=== PATIENT | male | born 1955 | race Caucasian/White ===

== ENCOUNTER 2020-02-11 08:19 | Day surgery (SDC) | payer MEDICAID, SELFPAY ==
[2020-02-05 15:30] VITALS: BMI 33.7
[2020-02-11 08:28] VITALS: BP 142/90; PULSE 78; RESP 16; TEMP 36.4; O2SAT 96
[2020-02-11 08:44] LABS: Glucose, Whole Blood 159 mg/dL (60-115)
--- NOTE | 2020-02-11 08:47 | MHC.SHP ---
Pre-Procedural Eval Section B Chief Complaint: Screening Details of Present Illness: screening Relevant Family History (Specify if Yes): No Relevant Social History: None Present Medications: see Short Stay Collaborative assessment Medical History: No relevant PMH History of Previous Operations: No relevant previous surgery Allergies: Allergies Allergy/AdvReac Type Severity Reaction Status Date / Time Penicillins Allergy Unknown Verified 02/05/20 15:18 Review of Systems Sugical H&P ROS: Negative: Constitution, Cardiovascular, Respiratory, Neurological, Psychiatric, Hem-Onc, Allergic/Immunologic, Gastrointestinal, Genitourinary, Musculoskeletal, Integumentary, Endocrine and Eyes/Ears/Nose/Throat Exam Surgical H&P Exam: Normal: HEENT, Normal: Heart, Normal: Lungs, Normal: Extremities, Normal: Abdomen, Normal: Skin and Normal: Neurological Plan Diagnosis/Plan: Unchanged Patient has been examined and remains a candidate for the planned procedure
--- NOTE | 2020-02-11 09:01 | HO.ANESPROP2 ---
[facility] Past Medical History Medical History (Updated 02/11/20 @ 09:02 by Xochilt Ojeda) Arthritis Chronic kidney disease Diabetes mellitus, type II Fatty liver High cholesterol Hypertension Increased BMI Family History Family history of problems with anesthesia: No Surgical History Surgical History Hx of colonoscopy History of Problems with Anesthesia: No Social History Social History Are you a primary healthcare network consultant to a significant other at home: No Do you presently have visiting nurse or other home services: No Smoking Status: Never smoker Use of substances other than those prescribed or required for medical reasons: No Have you been hit, kicked, punched, or otherwise hurt by someone within the past year? If so, by whom?: No Advance Directives: No Advance Directives Information Provided: No Advance Directives on File: No Recently lost weight without trying: No Meds Allergies Allergy/AdvReac Type Severity Reaction Status Date / Time Penicillins Allergy Unknown Verified 02/05/20 15:18 Home Medications Medication Instructions Recorded Confirmed Type acetaminophen [Tylenol] 650 mg PO Q6H PRN 02/05/20 02/05/20 History amlodipine mg PO DAILY 02/05/20 History cholecalciferol (vitamin D3) 25 mcg PO DAILY 02/05/20 02/05/20 History [Vitamin D3] empagliflozin [Jardiance] mg PO DAILY 02/05/20 History gemfibrozil 600 mg PO BID 02/05/20 02/05/20 History hydrochlorothiazide 25 mg PO DAILY 02/05/20 02/05/20 History lisinopril 40 mg PO DAILY 02/05/20 02/05/20 History simvastatin 10 mg PO DAILY 02/05/20 02/05/20 History Exam Exam Date and Time: February 11, 2020900 Height,Weight and Vital Signs: Height 5 ft 8.5 in Weight 102.058 kg Last Vital Signs Temp 97.5 F 02/11/20 08:28 Pulse 78 02/11/20 08:28 Resp 16 02/11/20 08:28 BP 142/90 H 02/11/20 08:28 Pulse Ox 96 02/11/20 08:28 Pertinent Lab Results Pertinent Lab Results: Laboratory Tests 12/15/20 08:40 POC Glucose 159 H Airway Mallampati Class: II TM Dist: >3cm Neck ROM: Full Heart: RRR Lungs: CTAB Assessment and Plan Assessment Anesthesia Assessment: Anesthesia Plan Discussed and Chart Reviewed Final Anesthetic Review ASA Class: II Final Preanesthetic Review: No Changes in Pt Med Stat, Meds/Allgs Chart Reviewed, Consent Obtained/Reviewed and Anes Risks/Benef Reviewed Patient Risk: Low Assessment/Block/Sedation in SS: Assess/Block/Sedation-SS Anesthetic Plan Anesthetic Plan: MAC: Disposition: Standard PACU
[2020-02-11 09:55] VITALS: BP 103/63; PULSE 64; RESP 18; TEMP 36.1; O2SAT 95
--- NOTE | 2020-02-11 10:05 | PM.OP ---
Brief Operative Note Date of Service: 02/11/20 Post-op diagnosis: same Procedure: colonoscopy Surgeon: Bc Richter Anesthesia: MAC Estimated blood loss (mL): 0 Pathology: none sent Condition: stable Disposition: PACU
[2020-02-11 10:06] VITALS: BP 123/75; PULSE 63; RESP 18; O2SAT 95
--- NOTE | 2020-02-11 10:23 | OP_ITS ---
SURGEON: Bc Richter MD INDICATIONS: Colon cancer screening and prior history of colon polyps. PREOPERATIVE DIAGNOSIS: POSTOPERATIVE DIAGNOSIS: PROCEDURE PERFORMED: Colonoscopy to the terminal ileum. ESTIMATED BLOOD LOSS: COMPLICATIONS: ANESTHESIA: ASSISTANTS: SPECIMENS: MEDICATIONS: Monitored anesthesia care. DESCRIPTION OF PROCEDURE: History and physical performed. The risks and benefits of the procedure were explained to the patient. Informed consent was obtained. The patient was placed in left lateral decubitus position. A digital rectal exam was performed and was found to be normal. The Olympus pediatric video colonoscope was introduced into the rectum and advanced to the cecum without difficulty. The cecum was identified by transillumination, palpation, and identification of the ileocecal valve. Examination was performed and the scope was removed. He tolerated the procedure well and was taken to recovery area in stable condition. FINDINGS: The terminal ileum was normal. The visualized colonic mucosa was normal. There was moderate amount of liquid stool in the right colon, transverse colon, and proximal descending colon. This limited the sensitivity examination for detection of small polyps. This was washed and suctioned as best possible. No polyps were identified. Retroflexed examination showed small internal hemorrhoids. IMPRESSION: Negative screening colonoscopy. RECOMMENDATIONS: 1. Follow up as needed. 2. Repeat colonoscopy in 5 years because of prior history of colon polyps. MD SARA Reese/SHIRA / [phone]
--- NOTE | 2020-02-11 10:38 | HO.POSTANES ---
Post Anesthesia Evaluation Post Anesthesia Evaluation Vital Signs: Vital Signs Temp Pulse Resp BP Pulse Ox 02/11/20 10:06 97.0 F 63 18 123/75 95 02/11/20 09:55 97.0 F 64 18 103/63 95 02/11/20 08:28 97.5 F 78 16 142/90 H 96 Anesthesia: General (TIVA) Mental Status: Awake Pain Control: Satisfactory Nausea/Vomiting: None Hydration: Adequate Anesthesia-Related Issues: No Anes. Related Issues
== END 2020-02-11 11:05 | disposition home or self-care (01) ==
PROVIDERS: PCP Family Medicine; Visit Provider Internal Medicine Gastroenterology
PROC: 0DJD8ZZ Inspection of Lower Intestinal Tract, Via Natural or Artificial Opening Endoscopic (ICD-10-PCS; CPT 45378; principal; 2020-02-11 09:30)
DX: Z12.11 Encounter for screening for malignant neoplasm of colon (principal); K64.8 Other hemorrhoids; E11.9 Type 2 diabetes mellitus without complications; Z79.84 Long term (current) use of oral hypoglycemic drugs; Z88.0 Allergy status to penicillin
CPT/HCPCS: 45378; 82947

== ENCOUNTER 2020-03-30 14:15 | Outpatient (REF) | payer MEDICAID, SELFPAY | END 2020-03-30 14:16 | disposition home or self-care (01) | LOC: HO.LAB 14:15 | PROVIDERS: Visit Provider Internal Medicine | DX: Z20.822 Contact with and (suspected) exposure to COVID-19 (principal) | CPT/HCPCS: 36415; C9803; U0003; U0005 ==

== ENCOUNTER 2021-11-15 11:36 | Outpatient (REF) | payer MEDICAID, SELFPAY ==
--- NOTE | ~2021-11-15 | XR_ITS ---
EXAMINATION: XR LUMBOSACRAL SPINE WITH OBLIQUES CLINICAL INFORMATION: Low back pain. COMPARISON: None. TECHNIQUE: AP, both oblique, and lateral views of the lumbar spine. Lateral view of the lumbosacral junction. FINDINGS: There is normal lumbar lordosis. The vertebral heights, alignment and disc heights are normal. On oblique views, there is no pars defect or listhesis. There is mild L5-S1 facet joint arthropathy. No visible acute fracture, dislocation or lytic process seen. There is mild ventral spondylosis L1-L2 through L4-L5 disc levels. XR/XR lumbar spine 4V min IMPRESSION: Mild degenerative disc changes L2-L3 and L3-L4 disc levels with ventral spondylosis. No visible acute fracture or dislocation seen.
== END 2021-11-15 11:37 | disposition home or self-care (01) ==
LOC: HO.XRAY 11:36
PROVIDERS: PCP Family Medicine; Visit Provider Family Medicine
DX: M54.50 Low back pain, unspecified (principal)
CPT/HCPCS: 72110

== ENCOUNTER 2022-01-12 14:00 | Outpatient (RCR) | payer MEDICAID, SELFPAY ==
[2021-12-13 14:17] VITALS: BP 155/76; PULSE 77
== END 2022-02-15 15:17 | disposition home or self-care (01) ==
LOC: HO.PT 14:00
PROVIDERS: PCP Family Medicine; Visit Provider Family Medicine
DX: M54.50 Low back pain, unspecified (principal)
CPT/HCPCS: 97110; 97140; 97162

== ENCOUNTER 2023-03-24 12:54 | Outpatient (REF) | payer MEDICARE, MEDICAID, SELFPAY ==
[2023-03-24 14:25] LABS: Alanine Aminotransferase 41 U/L (0-40); Albumin Level 4.6 g/dL (3.5-5.0); Alkaline Phosphatase 68 U/L (39-117); Anion Gap 14 (12-20); Aspartate Amino Transferase 33 U/L (5-37); Bilirubin Total 1.1 mg/dL (0.0-1.0); Blood Urea Nitrogen 18 mg/dL (9-16); Carbon Dioxide 24 mmol/L (22-29); Chloride 106 mmol/L (96-108); Cholesterol 137 mg/dL (<200); Estimated Glomerular Filt Rate > 60; Glucose Random 162 mg/dL (60-115); HDL Cholesterol 45 mg/dL (>40); LDL Cholesterol Calculated 69 mg/dL (<100); Potassium 4.4 mmol/L (3.3-5.1); Sodium 140 mmol/L (135-145); Total Protein 7.8 g/dL (6.5-8.0); Triglycerides 115 mg/dL (<150)
[2023-03-24 14:41] LABS: Vitamin D 25-OH Total 30.5 ng/mL (>30)
[2023-03-24 15:23] LABS: Reflex LDLD? No
[2023-03-24 15:58] LABS: Creatinine Urine 83.37 mg/dL; Microalbum/Creatinine Ratio Ur 8.3 ug/mg cr (<30)
== END 2023-03-24 12:55 | disposition home or self-care (01) ==
LOC: HO.LAB 12:54
PROVIDERS: PCP Family Medicine; Visit Provider Family Medicine
DX: E11.9 Type 2 diabetes mellitus without complications (principal)
CPT/HCPCS: 36415; 80053; 80061; 82043; 82306; 82570

== ENCOUNTER 2023-05-16 15:15 | Outpatient (REF) | payer MEDICARE, MEDICAID, SELFPAY ==
--- NOTE | ~2023-05-16 | XR_ITS ---
EXAMINATION: XR CHEST CLINICAL INFORMATION: Pursed lip COMPARISON: None available. TECHNIQUE: 2 views of the chest were obtained. FINDINGS: No significant abnormality is noted involving the heart, lungs, mediastinum, bony thorax or soft tissues. XR/XR chest 2V IMPRESSION: Unremarkable chest examination.
== END 2023-05-16 15:16 | disposition home or self-care (01) ==
LOC: HO.HHCX 15:15
PROVIDERS: Visit Provider Family Medicine
DX: R09.89 Other specified symptoms and signs involving the circulatory and respiratory systems (principal); R06.00 Dyspnea, unspecified
CPT/HCPCS: 71046

== ENCOUNTER 2024-03-12 12:35 | Outpatient (REF) | payer MEDICARE, MEDICAID, SELFPAY ==
[2024-03-12 13:56] LABS: Alanine Aminotransferase 46 U/L (0-40); Albumin Level 4.6 g/dL (3.5-5.0); Alkaline Phosphatase 93 U/L (39-117); Anion Gap 10 (12-20); Aspartate Amino Transferase 31 U/L (5-37); Bilirubin Total 0.6 mg/dL (0.0-1.0); Blood Urea Nitrogen 12 mg/dL (9-16); Calcium 9.3 mg/dL (8.4-10.2); Carbon Dioxide 22 mmol/L (22-29); Chloride 112 mmol/L (96-108); Cholesterol 121 mg/dL (<200); Estimated Glomerular Filt Rate > 60; Glucose Random 176 mg/dL (60-115); HDL Cholesterol 40 mg/dL (>40); LDL Cholesterol Calculated 53 mg/dL (<100); Sodium 140 mmol/L (135-145); Total Protein 7.7 g/dL (6.5-8.0); Triglycerides 144 mg/dL (<150)
[2024-03-12 14:05] LABS: Reflex LDLD? No
[2024-03-12 14:18] LABS: Folate 6.2 ng/mL (> or = 4.0); Vitamin B12 231 pg/mL (200-900)
[2024-03-12 14:23] LABS: Vitamin D 25-OH Total 31.8 ng/mL (>30)
[2024-03-12 14:35] LABS: Creatinine Urine 57.28 mg/dL; Microalbum/Creatinine Ratio Ur 22.6 ug/mg cr (<30)
== END 2024-03-12 12:36 | disposition home or self-care (01) ==
LOC: HO.HHCL 12:35
PROVIDERS: Visit Provider Family Medicine
DX: E11.9 Type 2 diabetes mellitus without complications (principal); E55.9 Vitamin D deficiency, unspecified
CPT/HCPCS: 36415; 80053; 80061; 82043; 82306; 82570; 82607; 82746